=== PATIENT | female | born 1950 ===

== ENCOUNTER 2021-05-10 05:48 | Day surgery (SDC) | payer OTHER | END 2021-05-10 11:10 | disposition home or self-care (01) | LOC: AMB-ENDOS 05:48 | PROVIDERS: ATTEND Surgery | DX: D12.1 Benign neoplasm of appendix (principal); D17.5 Benign lipomatous neoplasm of intra-abdominal organs ==

== ENCOUNTER 2024-10-13 11:03 | Inpatient (IN) | payer OTHER ==
[~2024-10-13] VITALS: Ht 213.4 cm; Wt 78.9 kg
[2024-10-13] MEDS ORDERED: METFORMIN HCL500 M3 PO (11:18)
[2024-10-13] MEDS ORDERED: NEURONTIN600 M1 PO (11:19)
[2024-10-13] MEDS ORDERED: TIROSINT25 MCG PO (11:19)
[2024-10-13] MEDS ORDERED: AVAPRO300 MG PO (11:19)
[2024-10-13] MEDS ORDERED: FEOSOL325 MG PO (11:20)
[2024-10-20] MEDS ORDERED: METRONIDAZOLE/SODIUM CHLORIDE 500 MG/100 ML PIGGYBACK IV ONE (10:15)
[2024-10-20] MEDS ORDERED: CEFTRIAXONE SODIUM 2,000 MG VIAL IV ONE (10:15)
[2024-10-20] MEDS ORDERED: DEXTROSE 50 % IN WATER 0.5 G/ML DISP.SYRIN IV PRN ×2 (11:00→11:15)
[2024-10-20] MEDS ORDERED: 0.9 % SODIUM CHLORIDE 1,000 ML IV SCH (11:00)
[2024-10-20] MEDS ORDERED: ONDANSETRON HCL 2 MG/ML VIAL IV PRN (11:00)
[2024-10-20] MEDS ORDERED: OxyCODONE HCL 5 MG TABLET (ROXICODONE) PO PRN (11:00)
[2024-10-20] MEDS ORDERED: MORPHINE SULFATE 4 MG/ML CARTRIDGE IV PRN (11:00)
[2024-10-20] MEDS ORDERED: ENALAPRILAT DIHYDRATE 1.25 MG/ML VIAL IV PRN (11:15)
[2024-10-20] MEDS ORDERED: INSULIN LISPRO 1,000 UNIT/10 ML UNITS SUBCUTANEO PRN (11:15)
[2024-10-20] MEDS ORDERED: SUGAMMADEX SODIUM 200 MG/2 ML VIAL IV ONE (11:15)
[2024-10-20] MEDS ORDERED: ENALAPRILAT DIHYDRATE 1.25 MG/ML VIAL IV ONE (11:30)
[2024-10-20] MEDS ORDERED: LEVALBUTEROL HCL 0.63 MG/3 ML SOLUTION IH SCH (12:00)
[2024-10-20 13:17] LABS: ABG PH 7.358 (7.35-7.45); ABG PO2 140.5 mmHg (80-100); ABG pCO2 38.3 mmHg (35-45); BASE EXCESS -3.9 mmol/l; Tco2 22.2 mmol/l
[2024-10-20] MEDS ORDERED: ACETAMINOPHEN 500 MG GEL..CAP PO SCH (14:00)
[2024-10-20 14:10] LABS: HEMATOCRIT 44.3 % (36.0-45.00); HEMOGLOBIN 14.7 g/dL (12.0-15.00); MEAN CELL VOLUME 85.9 fL (80.00-100.00); MEAN CORPUSCULAR HEMOGLOBIN 28.4 pg (27.00-32.0); MEAN CORPUSCULAR HGB CONC 33.1 g/dl (32.0-36.0); PLATELET COUNT 348 K/uL (150-450); RED BLOOD COUNT 5.16 M/uL (4.00-6.00); RED CELL DISTRIBUTION WIDTH 15.1 % (11.5-14.5)
[2024-10-20 14:30] LABS: allen test SATISFACTORY; o2 32 %; puncture site RADIAL LEFT
[2024-10-20 14:45] LABS: ALBUMIN 3.4 gm/dL (3.4-5.0); CALCIUM 9.5 mg/dL (8.5-10.1); CREATININE SERUM 0.86 mg/dL (0.55-1.02); GFR 64.15; MAGNESIUM 2.1 mg/dL (1.8-2.4); PHOSPHOROUS 4.2 mg/dL (2.5-4.9); POTASSIUM 4.96 mEq/L (3.5-5.1)
[2024-10-20] MEDS ORDERED: GABAPENTIN 300 MG CAPSULE PO SCH (17:00)
[2024-10-20] MEDS ORDERED: HYOSCYAMINE SULFATE 0.125 MG TAB.SUBL SL SCH (17:00)
[2024-10-20] MEDS ORDERED: METRONIDAZOLE/SODIUM CHLORIDE 500 MG/100 ML PIGGYBACK IV SCH (17:00)
[2024-10-20] MEDS ORDERED: POLYETHYLENE GLYCOL 3350 17 GM BLIST.PACK PO SCH (17:00)
[2024-10-20 17:22] VITALS: O2SAT 95
[2024-10-20 17:39] VITALS: BP 126/76; O2SAT 96
[2024-10-20] MEDS ORDERED: FAMOTIDINE/PF 20 MG/2 ML VIAL IV PUSH SCH (21:00)
[2024-10-20] MEDS ORDERED: MEMANTINE HCL 5 MG TABLET PO SCH (21:00)
[2024-10-20] MEDS ORDERED: MONTELUKAST SODIUM 10 MG TABLET PO SCH (21:00)
[2024-10-20] MEDS ORDERED: METOPROLOL TARTRATE 25 MG TABLET PO SCH (21:00)
[2024-10-20] MEDS ORDERED: CELECOXIB 200 MG CAPSULE PO SCH (21:00)
[2024-10-20 21:08] VITALS: O2SAT 98
[2024-10-21] VITALS: BP 99/65; O2SAT 95
[2024-10-21 05:21] VITALS: O2SAT 97
[2024-10-21] MEDS ORDERED: LEVOTHYROXINE SODIUM 25 MCG TABLET PO SCH (06:00)
[2024-10-21 07:22] LABS: CALCIUM 9.2 mg/dL (8.5-10.1); CREATININE SERUM 0.89 mg/dL (0.55-1.02); GFR 61.67; MAGNESIUM 2.3 mg/dL (1.8-2.4); PHOSPHOROUS 4.1 mg/dL (2.5-4.9); POTASSIUM 3.93 mEq/L (3.5-5.1)
[2024-10-21 08:00] VITALS: BP 111/75; O2SAT 95
[2024-10-21] MEDS ORDERED: HYOSCYAMINE0.125 M1 SL (08:22)
[2024-10-21] MEDS ORDERED: PEPCID AC20 MG PO (08:22)
[2024-10-21] MEDS ORDERED: TRAM1TAB98 PO (08:22)
[2024-10-21 10:08] VITALS: O2SAT 95
[2024-10-21] MEDS ORDERED: ENOXAPARIN SODIUM 40 MG/0.4 ML SYRINGE SUBCUTANEO SCH (17:00)
[2024-10-21] MEDS ORDERED: ATORVASTATIN CALCIUM 20 MG TABLET PO SCH (17:00)
[2024-10-22] MEDS ORDERED: ENOXAPARIN SODIUM 40 MG/0.4 ML SYRINGE SUBCUTANEO SCH (09:00)
== END 2024-10-21 12:02 | disposition home or self-care (01) | DRG 331 ==
LOC: O/R 10-20 07:16 → SURH 10-20 08:30 → SURG 10-20 12:33
PROVIDERS: Internal Medicine Geriatric Medicine; ADMIT Surgery; ATTEND Surgery
PROC: 3E0F7GC Introduction of Other Therapeutic Substance into Respiratory Tract, Via Natural or Artificial Opening (ICD-10-PCS; 2024-10-20)
PROC: 4A12X4Z Monitoring of Cardiac Electrical Activity, External Approach (ICD-10-PCS; 2024-10-20)
PROC: 0DTH4ZZ Resection of Cecum, Percutaneous Endoscopic Approach (ICD-10-PCS; principal; 2024-10-20 08:30)
DX: D12.0 Benign neoplasm of cecum (principal); D12.1 Benign neoplasm of appendix; I10 Essential (primary) hypertension; E11.9 Type 2 diabetes mellitus without complications; E78.00 Pure hypercholesterolemia, unspecified; J45.20 Mild intermittent asthma, uncomplicated; E66.01 Morbid (severe) obesity due to excess calories; H50.9 Unspecified strabismus; K29.70 Gastritis, unspecified, without bleeding; G31.84 Mild cognitive impairment of uncertain or unknown etiology